=== PATIENT | male | born 1960 | race Hispanic/Latino ===

== ENCOUNTER 2018-01-13 09:38 | Emergency (ER) | payer OTHER ==
[2018-01-13 09:44] VITALS: BMI 27.4
[2018-01-13 09:46] VITALS: BP 148/96; PULSE 82; RESP 20; TEMP 97.9; O2SAT 98
--- NOTE | 2018-01-13 10:07 | ED PDOC ---
Upper Extremity Pain/Injury Time Seen by Provider: 01/13/18 09:57 Chief Complaint (Nursing): Upper Extremity Problem/Injury History Per: Patient Onset/Duration Of Symptoms: Days (10) Current Symptoms Are (Timing): Still Present Severity: Moderate Additional Complaint(s): Lifted heavy couch 10 days ago, felt pop anticubital area but improved over next 3-4 days. Was pulling on fire hydrant 1 week ago, flet pain and has noted swelling and ecchymosis to right bicep and right forearm. Unable to fully extend due to pain. Past Medical History Vital Signs: Last Vital Signs Temp 97.9 F 01/13/18 09:44 Pulse 82 01/13/18 09:44 Resp 20 01/13/18 09:44 BP 148/96 H 01/13/18 09:44 Pulse Ox 98 01/13/18 09:44 - Medical History PMH: HTN - Family History Family History: States: Unknown Family Hx - Home Medications Home Medications: Ambulatory Orders Medication Instructions Recorded traMADol [Ultram] 50 mg PO Q8 #10 tab 01/13/18 - Allergies Allergies/Adverse Reactions: Allergies Allergy/AdvReac Type Severity Reaction Status Date / Time No Known Allergies Allergy Verified 01/13/18 09:54 Review of Systems Constitutional: Negative for: Fever Musculoskeletal: Positive for: Arm Pain Neurological: Negative for: Weakness, Numbness Physical Exam - Physical Exam Appears: Positive for: Non-toxic, No Acute Distress Extremity: Positive for: Other (Right upper, swelling and ecchymosis to right bicep with ecchymosis to right flexor surface forearm. Radial pulse 2/4. No evidence of compatment syndrome Sensation and motor intact distal to ecchymosis. ROM, unable to extend to 180 deg, able to extend to 130) - ECG O2 Sat by Pulse Oximetry: 98 Disposition - Clinical Impression Clinical Impression: Biceps muscle tear - Patient ED Disposition Is Patient to be Admitted: No Discussed With : Clive Oro Counseled Patient/Family Regarding: Studies Performed, Diagnosis, Need For Followup, Rx Given - Disposition Referrals: Clive Oro MD [Staff Provider] - Disposition: Routine/Home Disposition Time: 10:59 Condition: FAIR Prescriptions: traMADol [Ultram] 50 mg PO Q8 #10 tab Instructions: Muscle Strain Forms: [email or web address] ([place])
--- NOTE | 2018-01-13 12:32 | RAD ---
PROCEDURE: Radiographs of the right elbow. HISTORY: injury COMPARISON: No prior. FINDINGS: BONES: Normal. No fracture. JOINTS: Normal. No osteoarthritis. SOFT TISSUES: Soft tissue swelling about the distal humerus. JOINT EFFUSION: None. OTHER FINDINGS: None. IMPRESSION: Soft tissue swelling without acute articular or osseous abnormality.
== END 2018-01-13 11:34 | disposition home or self-care (01) ==
LOC: H.ER 09:38
DX: S46.211A Strain of muscle, fascia and tendon of other parts of biceps, right arm, initial encounter (principal); X50.9XXA Other and unspecified overexertion or strenuous movements or postures, initial encounter; Y92.89 Other specified places as the place of occurrence of the external cause